=== PATIENT | male | born 1945 | race Caucasian/White ===

== ENCOUNTER 2019-07-10 07:11 | Day surgery (SDC) | payer OTHER ==
[2019-07-08 13:05] VITALS: BP 133/50
[2019-07-08 13:36] LABS: BASOPHILS % (AUTO) 0.8 % (0.0-5.0); EOSINOPHILS % (AUTO) 2.5 % (0.0-8.0); HEMATOCRIT 47.2 % (42-54); LYMPHOCYTES % (AUTO) 25.8 % (21.0-51.0); MEAN CORPUSCULAR HEMOGLOBIN 31.1 pg (27.0-33.0); MEAN CORPUSCULAR HGB CONC 33.7 g/dL (32.0-36.0); MEAN CORPUSCULAR VOLUME 92.3 fL (79-99); MONOCYTES % (AUTO) 9.1 % (3.0-13.0); NEUTROPHILS % (AUTO) 61.8 % (40.0-77.0); PLATELET COUNT (AUTO) 181 K/uL (130-400); RED BLOOD CELL COUNT(AUTO) 5.11 MIL/uL (4.50-6.20); RED CELL DISTRIBUTION WIDTH 13.4 % (11.0-15.5); WHITE BLOOD COUNT (AUTO) 6.4 K/uL (4.8-10.8)
[2019-07-08 13:43] LABS: APPEARANCE,URINE Clear (CLEAR); BILIRUBIN,URINE Negative (NEGATIVE); COLOR,URINE Yellow (YELLOW); GLUCOSE, URINE (UA) >=1000 mg/dL (NEGATIVE); KETONES,URINE Negative (NEGATIVE); LEUKOCYTE ESTERASE ,URINE Negative (NEGATIVE); NITRATE,URINE Negative (NEGATIVE); OCCULT BLOOD,URINE Negative (NEGATIVE); PROTEIN,URINE Negative (NEGATIVE); UROBILINOGEN,URINE 0.2 mg/dL (0.2-1.0)
[2019-07-08 13:45] LABS: CREATININE 1.2 mg/dL (0.5-1.5); POTASSIUM 3.7 mmol/L (3.5-5.1)
[2019-07-08 13:49] LABS: INR 1.07 (0.85-1.15); PARTIAL THROMBOPLASTIN TIME 27.2 SEC (26.3-35.5); PROTHROMBIN TIME 11.2 SEC (9.6-11.6)
[2019-07-08 14:04] LABS: BACTERIA,URINE None Seen /HPF (None Seen); RBC,URINE None Seen /HPF (0-1); SQUAMOUS EPITHELIAL CELL,UR 0-2 /HPF (0-2); WBC,URINE None Seen /HPF (0-1)
[~2019-07-10] VITALS: Ht 165.1 cm; Wt 81.6 kg
[2019-07-10] VITALS (10 sets, daily range): BP systolic 128–153; BP diastolic 50–84
[~2019-07-10 07:11] MED LIST: ALBUTEROL IH; AMLO5TAB9 PO; CETI10TA57 PO; EMPA1TAB PO; ESOM40CA54 PO; FLUTICASONE NASAL; HYDR25TA PO; MELO-108 PO; NEBI10TA PO; SIMV-46 PO; TRAM50TA4 PO; VALS320T16 PO
[2019-07-10] MEDS ORDERED: SODIUM CHLORIDE 0.9% 1000ML 1,000 ML IV SCH ×2 (08:00→11:43)
--- NOTE | 2019-07-10 11:00 | NUR ---
PROCEDURE PT TAKEN TO PHOSPHORIC ACID OPERATOR FOR SCHEDULED PROCEDURE VIA BED,NO DISTRESS NOTED. FAMILY AT BEDSIDE
[2019-07-10] MEDS ORDERED: IOHEXOL 350 MG/ML 100ML INFUS..BTL IV ONE (11:07)
[2019-07-10] MEDS ORDERED: HEPARIN SODIUM 1000UNIT/ML 10ML VIAL ONE (11:07)
[2019-07-10] MEDS ORDERED: LIDOCAINE HCL 2% 20ML ONE (11:07)
[2019-07-10] MEDS ORDERED: IOHEXOL-350 50ML VIAL IV ONE (11:07)
[2019-07-10] MEDS ORDERED: NITROGLYCERIN 5 MG/ML 10 ML VIAL IV ONE (11:08)
[2019-07-10] MEDS ORDERED: SODIUM BICARB 50MEQ 50ML VIAL ONE (11:09)
[2019-07-10] MEDS ORDERED: MIDAZOLAM HCL 1 MG/ML 2ML VIAL ONE (11:23)
[2019-07-10] MEDS ORDERED: MEPERIDINE-PF 25 MG/ML SYG ONE (11:24)
--- NOTE | 2019-07-10 12:00 | NUR ---
post received pt back from lab associate. s/p [facility]. PERCLOSE closure device to right groin, no bleeding or hematoma to site. see post cath assessment, vs stable. plan of care discuss with patient/ brother. both verbalized understanding.
--- NOTE | 2019-07-10 16:15 | NUR ---
dc pt dc home via w[facility], no distress noted. denies any pain or discomforts. right groin perclose closure device in place. no bleeding or hematoma to site. vs stable on discharge, pt accompanied by brother. dc instructions reinforced again to continue home meds, to f/u with dr. nick patel and on post cath emergency precautions
== END 2019-07-10 16:15 | disposition home or self-care (01) ==
LOC: DAH 07:11
PROVIDERS: ATTEND Internal Medicine Cardiovascular Disease
DX: R93.1 Abnormal findings on diagnostic imaging of heart and coronary circulation (principal); I25.10 Atherosclerotic heart disease of native coronary artery without angina pectoris; I10 Essential (primary) hypertension; K21.9 Gastro-esophageal reflux disease without esophagitis; M19.90 Unspecified osteoarthritis, unspecified site; J45.909 Unspecified asthma, uncomplicated; E78.00 Pure hypercholesterolemia, unspecified; Z79.899 Other long term (current) drug therapy; Z79.01 Long term (current) use of anticoagulants; Z88.8 Allergy status to other drugs, medicaments and biological substances; Z83.3 Family history of diabetes mellitus; Z82.3 Family history of stroke; Z82.49 Family history of ischemic heart disease and other diseases of the circulatory system
CPT/HCPCS: 36415; 71045; 80048; 81001; 82948 ×2; 85025; 85610; 85730; 93005; 93458; A4215; A4216; A4221; A4222; A4223 ×3; A4606; A4663; C1760; C1894; J1644; J2175; J2250; J3490 ×3; Q9965; Q9967 ×2; 99156; 99157

== ENCOUNTER → 2024-03-24 | Outpatient (CLI) | payer MEDICARE ==
[~2024-03-24] MED LIST changes: +AMLO-257 PO; -AMLO5TAB9 PO; -ESOM40CA54 PO; +ESOM40CA66 PO
== END | disposition home or self-care (01) ==
LOC: SHCH 14:09
PROVIDERS: ATTEND Internal Medicine Cardiovascular Disease
DX: I08.3 Combined rheumatic disorders of mitral, aortic and tricuspid valves (principal); I11.9 Hypertensive heart disease without heart failure
CPT/HCPCS: 93306

== ENCOUNTER → 2024-03-28 | Outpatient (CLI) | payer MEDICARE ==
[2024-03-28] MEDS: REGADENOSON 0.4 MG/5 ML PF SYG IVP ONE (12:31)
== END | disposition home or self-care (01) ==
LOC: SHCH 07:55
PROVIDERS: ATTEND Internal Medicine Cardiovascular Disease
DX: I10 Essential (primary) hypertension (principal); R94.31 Abnormal electrocardiogram [ECG] [EKG]
CPT/HCPCS: 78452; 93017; J2785; A9500 ×2; 96374